=== PATIENT | male | born 2000 | race Caucasian/White ===

== ENCOUNTER 2022-11-22 06:41 | Emergency (ER) | payer OTHER ==
[2022-11-22] MEDS ORDERED: Sodium Chloride 0.9% 10 ML Syringe FLUSH PRN (07:03)
[2022-11-22] MEDS ORDERED: Ondansetron 4 MG/2 ML SDV IVPUSH ONE (07:03)
[2022-11-22] MEDS ORDERED: Ketorolac 30 MG/ML SDV IVPUSH ONE (07:04)
[2022-11-22] MEDS ORDERED: HYDROmorphone 0.5 MG/0.5 ML Syringe IVPUSH ONE (07:04)
[2022-11-22] MEDS ORDERED: Sodium Chloride 0.9% 1,000 ML IV SCH (07:15)
[2022-11-22 07:30] LABS: BASOPHILS ABSOLUTE AUTO 0.02 K/mm3 (0.01-0.08); BASOPHILS PERCENT AUTO 0.1 % (0.1-1.2); EOSINOPHILS ABSOLUTE AUTO 0.01 K/mm3 (0.04-0.54); EOSINOPHILS PERCENT AUTO 0.1 (0.8-7.0); HEMOGLOBIN 15.2 gm/dl (13.7-17.5); IMMATURE GRAN ABSOLUTE AUTO 0.02 K/mm3 (0.00-0.10); IMMATURE GRAN PERCENT AUTO 0.1 % (<=1.0); LYMPHOCYTES ABSOLUTE AUTO 1.13 K/mm3 (1.32-3.57); LYMPHOCYTES PERCENT AUTO 7.3 % (21.8-53.1); MEAN CORPUSCULAR HEMOGLOBIN 30.8 pg (25.7-32.2); MEAN CORPUSCULAR HGB CONC 35.3 g/dl (32.2-35.5); MEAN CORPUSCULAR VOLUME 87.2 fl (79.0-92.2); MEAN PLATELET VOLUME 10.1 fl (9.4-12.3); MONOCYTES ABSOLUTE AUTO 1.09 K/mm3 (0.30-0.82); NEUTROPHILS PERCENT AUTO 85.4 % (34.0-67.9); PLATELET COUNT,PLT 289 K/mm3 (163-337); RED BLOOD CELL COUNT 4.93 M/mm3 (4.63-6.08); WHITE BLOOD CELL COUNT,WBC 15.47 K/mm3 (4.23-9.07)
[2022-11-22 07:59] LABS: A/G RATIO 1.6 (1-2); ALBUMIN 4.8 g/dl (3.4-5.0); ANION GAP 13.8 (5-15); BILIRUBIN TOTAL 0.5 mg/dL (0.2-1.0); BUN/CREATININE RATIO 10.7 (14-18); CALCIUM 9.4 mg/dL (8.5-10.1); CREATININE 1.4 mg/dL (0.7-1.3); EST CRCL DRUG DOSING (CG) 79.81 mL/min; POTASSIUM,K 3.8 mEq/L (3.5-5.1); PROTEIN TOTAL,TP 7.9 g/dl (6.4-8.2)
[2022-11-22 08:20] LABS: APPEARANCE,URINE SLT CLOUDY (Clear); BILIRUBIN,URINE 1+ (Negative); COLOR,URINE YELLOW (Yellow); GLUCOSE,URINE NEGATIVE (Negative); KETONES,URINE TRACE (Negative); LEUKOCYTE ESTERASE,URINE NEGATIVE (Negative); NITRITE,URINE NEGATIVE (Negative); OCCULT BLOOD,URINE 3+ (Negative); PROTEIN,URINE 2+ (Negative); UROBILINOGEN,URINE 0.2 (0.2-1.0)
[2022-11-22 08:41] LABS: BACTERIA,URINE RARE /hpf (FEW); EPITHELIAL CELLS,URINE 0-5 /hpf (0-5); MUCUS,URINE NOT SEEN /hpf (FEW); RBC,URINE 50-75 /hpf (0-5); WBC,URINE 0-5 /hpf (0-5)
[2022-11-22 10:11] LABS: C. TRACHOMATIS BY PCR NOT DETECTED; N. GONORRHOEAE BY PCR NOT DETECTED
== END 2022-11-22 10:03 | disposition home or self-care (01) ==
LOC: JD.ED 06:41
DX: N13.2 Hydronephrosis with renal and ureteral calculous obstruction (principal)
CPT/HCPCS: 36415; 74176; 80053; 81001; 83690; 85025; 87491; 87591; 96361; 96374; 96375; 99284; J1170; J1885; J2405; J7030